=== PATIENT | male | born 1970 | race Caucasian/White ===

== ENCOUNTER 2023-12-24 08:22 | Outpatient (RCR) | payer BC, SELFPAY ==
--- NOTE | 2023-12-24 10:28 | HP.OTFCE.D ---
FCE D/C Summary Discharge text: JACKY HUERTA was seen for a one time visit for an FCE on 12/24/23 and is discharged.
--- NOTE | 2023-12-24 10:29 | HP.FCE ---
Task Lift Floor (Occasional 1-33% of Day): 50# Floor (Frequent 34-66% of Day): 25# Floor (Constant 67-100% of Day): 10# Floor PDL: Medium Knee (Occasional 1-33% of Day): 50# Knee (Frequent 34-66% of Day): 25# Knee (Constant 67-100% of Day): 10# Knee PDL: Medium Waist (Occasional 1-33% of Day): 50# Waist (Frequent 34-66% of Day): 25# Waist (Constant 67-100% of Day): 10# Waist PDL: Medium Shoulder (Occasional 1-33% of Day): 50# Shoulder (Frequent 34-66% of Day): 25# Shoulder (Constant 67-100% of Day): 10# Shoulder PDL: Medium Overhead (Occasional 1-33% of Day): 25# Overhead (Frequent 34-66% of Day): 12# Overhead (Constant 67-100% of Day): NA Overhead PDL: Light Comments: Medium Physical Demand level for lifting floor, knee, waist and shoulder levels Light Physical Demand level for lifting at overhead. Work Activity/Posture Bending: Frequent Ability (34-66% of day) Squatting: Frequent Ability (34-66% of day) Comments: with use of external support Kneeling: Frequent Ability (34-66% of day) Comments: with use of external support Reaching out: Frequent Ability (34-66% of day) Reaching up: Frequent Ability (34-66% of day) Sitting: Frequent Ability (34-66% of day) Walking: Frequent Ability (34-66% of day) Standing: Frequent Ability (34-66% of day) Reference Reference: Duration Sedentary Sedentary Light Light Light Medium Medium Medium Heavy Very Heavy Heavy Occasional (0-33% of day) Frequent (34-66% of day) Constant (67-100% of day) 10 # Negligible Negligible 15 # 8 # Negligible 20 # 10# Negli. 35 # 18 # 7 # 50 # 25 # 10 # 75 # 100 # >100 # 38 # 50 # >50 # 15 # 20 # >20 # Patient Information Height: 1.75 m Weight:: 66.224 kg Hand Dominance: right Medical History Medical History Including Restrictions: This 53 year old male was seen for FCE. Pt states he has been off work since maybe September 2023 (can not remember extract date) pt has been off work due to esophageal and stomach issues and treated for arthritis in his back and has issues with kidney stones as well since he has been off. pt is unable to recall dx pt states he has not done physical therapy for his back- pain medication does help ( over the counter) recent heart monitor by family dr due to increased heart rate when he was at the doctors office. Drinks 5-6 daily beer, tobacco user and reports he does not exercise. Diagnoses Diagnoses: Chronic back pain without sciatica DDD HTN DMII Tobacco use Symptoms Symptoms: pt reports low back pain 3/10 Pain Pain: Pt reports pain mild 3/10 pt states he does not take any pain medication Work History Work History: pt states he works at [employer], for 28 years. 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 Pt states he has to lift 50# for his job. 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 ADLS ADLS: Pt lives in 2 story home with 4 entry with 2 railings, Pt lives alone - ( sons live in same town as he does but does not see them as they have their own families) pt states he is IND with ADLS and IADLs at this time. Drives IND pt states he is IND. with all grocery shopping as well as yard mtg. Physical Examination Physical Examination: resting heart rate 122, 121, and 125 while sitting. denies taking medication ( did not take his blood pressure medication this am) states he typically does take in in AM just was running late. states he at times feels like his heart is racing but not at this time. ROM: pt demo ROM WNL Strength: fet2 peak force testing shoulder flexion right 24.5# left 25.5# shoulder extension right 31.7# left 24.9# Biceps right 38.7# left 34.6# Triceps right 28.8# left 30# Hip flexion right 19# left 23.3# ( low back 4/10) Quadriceps right 24# left 25# Hamstrings right 31# left 25# Right Drywall Boardhanger Strength Average: 68.33 Right Drywall Boardhanger Strength Percentile: 1.4% Left Drywall Boardhanger Strength Average: 58.33 Left Drywall Boardhanger Strength Percentile: <1.8% Right Lateral Pinch Average: 18.00 Right Lateral Pinch Percentile: 25% Left Lateral Pinch Average: 17.00 Left Lateral Pinch Percentile: 25% Right Tripod Pinch Average: 18.00 Right Tripod Pinch Percentile: 50% Left Tripod Pinch Average: 15.33 Left Tripod Pinch Percentile: 25% Sensation: denies Fine Motor: denies Balance: no loss of balance during assessment functional reach test 11 good balance Non Material Handling Activities Bending: pt demo the ability to bend forward 3/3x, 10/10x and 10/10x rapidly pt report LBP at 4/10 pt can perform on a frequent ability. Squatting: pt demo the ability to squat 3/3x, 10/10x and 10/10 x rapidly with use of external support LBP heart rate 125 pt can perform on frequent ability Kneeling: pt demo the ability to kneel 3/3x. 10/10x and 10/10 rapidly with use of external support. LBP 4/10 with a initial completion of kneeling task ( 10x rapidly) pts heart rate was initially reading 90 and jumped to 134 when sat down for rest. pt can perform on frequent ability Reaching out/up: pt demo the ability to reach up/out 3/3x, 10/10x and 10/10 rapidly pt did report low back soreness (4/10) heart rate 133 pt completed standing pt can perform on frequent ability Walking: pt demo the ability to ambulate with a quick reciprocal gait pattern heart rate with ambulation 70 and 109 then resting after 125 while sitting pt can perform on frequent ability Standing: pt demo the ability to stand for 15 min with no expressed or apparent discomfort pt can perform on frequent ability Sitting: pt demo the ability to sit for 45 min with no apparent and expressed discomfort pt can sit on frequent ability Climbing Stairs: pt demo the ability to ascend and descend 10 steps with a reciprocal step pattern. Dynamic Occasional Lifting Capacity Floor Lift: pt demo the ability to lift 50# maximally from this level with fair lifting mechanics. Knee Lift: pt demo the ability to lift 50# maximally from this level with fair lifting mechanics. Waist Lift: pt demo the ability to lift 50# maximally from this level with fair lifting mechanics. Shoulder Lift: pt demo the ability to lift 50# maximally from this level with fair lifting mechanics. Overhead Lift: pt demo the ability to lift 25# maximally from this level with fair lifting mechanics. Carryin# carry for 35 feet with good ability Comments: pt demo good physical ability to perform assessment will defer pts heart rate to
== END 2023-12-24 12:11 | disposition home or self-care (01) ==
LOC: OT 08:22
PROVIDERS: PCP Internal Medicine; Visit Provider Internal Medicine
DX: M51.36 Other intervertebral disc degeneration, lumbar region (principal); M54.50 Low back pain, unspecified; G89.29 Other chronic pain
CPT/HCPCS: 97750